=== PATIENT | male | born 1980 | race Caucasian/White ===

== ENCOUNTER 2017-06-09 16:19 | Emergency (ER) | payer SELFPAY ==
[~2017-06-09] VITALS: Ht 175.3 cm; Wt 104.0 kg
[2017-06-09 16:28] VITALS: Ht 175.3 cm; Wt 104.0 kg
[2017-06-09] MEDS ORDERED: CYCL-319 PO (17:25)
[2017-06-09] MEDS ORDERED: ACET325T33 PO (17:25)
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
== END 2017-06-09 17:46 | disposition home or self-care (01) ==
LOC: FTE 16:19
DX: S13.4XXA Sprain of ligaments of cervical spine, initial encounter (principal); V87.7XXA Person injured in collision between other specified motor vehicles (traffic), initial encounter
CPT/HCPCS: 99283